=== PATIENT | male | born 1960 | race Caucasian/White ===

== ENCOUNTER 2021-02-20 12:28 | Emergency (ER) | payer OTHER ==
[~2021-02-20 12:28] MED LIST: ALL DAY ALLERGY10 M2 PO; AUGMENTIN 875-1 EACH PO; BACLOFEN10 MG PO; CEFUROXIME500 MG PO; COZAAR100 MG PO; DOXYCYCLINE HY100 MG PO; FLOMAX 0.4 MG0.4 MG PO; GABAPENTIN400 MG PO; NORCO 5-325 TA1 EACH PO; OXYCODONE HCL10 MG PO; PREDNISONE 20 M20 MG GT; PROTONIX 40 MG40 M1 PO
[2021-03-18] MEDS ORDERED: TIZANIDINE HCL2 M1 PO (08:06)
[2021-03-18] MEDS ORDERED: LISINOPRIL20 MG PO (08:06)
[2021-03-18] MEDS ORDERED: VITAMIN D3125 MCG/0. PO (08:07)
== END 2021-02-20 15:07 | disposition home or self-care (01) ==
LOC: ER1 12:28
DX: S39.012A Strain of muscle, fascia and tendon of lower back, initial encounter (principal); S46.912A Strain of unspecified muscle, fascia and tendon at shoulder and upper arm level, left arm, initial encounter; Z79.899 Other long term (current) drug therapy; Z88.8 Allergy status to other drugs, medicaments and biological substances; V49.40XA Driver injured in collision with unspecified motor vehicles in traffic accident, initial encounter; Y92.410 Unspecified street and highway as the place of occurrence of the external cause
CPT/HCPCS: 72131; 72170; 73030; 99284

== ENCOUNTER → 2021-03-02 | Outpatient (CLI) | payer MEDICARE, OTHER ==
[~2021-03-02] MED LIST changes: +LISINOPRIL20 MG PO; +TIZANIDINE HCL2 M1 PO; +VITAMIN D3125 MCG/0. PO
== END ==
LOC: KOH-I 10:07
DX: M25.551 Pain in right hip (principal)
CPT/HCPCS: 73502

== ENCOUNTER → 2021-03-18 | Day surgery (SDC) | payer MEDICARE, OTHER | END | disposition home or self-care (01) | LOC: OR 06:40 | DX: Z12.11 Encounter for screening for malignant neoplasm of colon (principal); K31.9 Disease of stomach and duodenum, unspecified; Z90.49 Acquired absence of other specified parts of digestive tract; J30.9 Allergic rhinitis, unspecified; F41.9 Anxiety disorder, unspecified; M19.90 Unspecified osteoarthritis, unspecified site; K22.70 Barrett's esophagus without dysplasia; N43.3 Hydrocele, unspecified; E78.5 Hyperlipidemia, unspecified; I10 Essential (primary) hypertension; M54.16 Radiculopathy, lumbar region; C44.90 Unspecified malignant neoplasm of skin, unspecified; G62.9 Polyneuropathy, unspecified; M06.9 Rheumatoid arthritis, unspecified; E55.9 Vitamin D deficiency, unspecified; Z79.899 Other long term (current) drug therapy; Z88.8 Allergy status to other drugs, medicaments and biological substances; Z20.822 Contact with and (suspected) exposure to COVID-19; Z90.79 Acquired absence of other genital organ(s) | CPT/HCPCS: J2704; J7030 ==

== ENCOUNTER → 2021-04-19 | Outpatient (CLI) | payer MEDICARE, OTHER | LOC: RAD 11:03 | DX: R06.02 Shortness of breath (principal); R50.9 Fever, unspecified; Z20.822 Contact with and (suspected) exposure to COVID-19 | CPT/HCPCS: 71046; U0003 ==

== ENCOUNTER 2021-09-09 14:12 | Emergency (ER) | payer MEDICARE, OTHER ==
[2021-09-09 15:55] LABS: RED BLOOD COUNT 4.84 M/UL (4.20-5.50); WHITE BLOOD COUNT 6.9 K/UL (4.5-11.0)
[2021-09-09 16:25] LABS: BUN/CREATININE RATIO 7 (0-10)
== END 2021-09-09 16:42 | disposition home or self-care (01) ==
LOC: ER1 14:12
PROVIDERS: Preventive Medicine Occupational Medicine
DX: M54.50 Low back pain, unspecified (principal); G89.29 Other chronic pain; I10 Essential (primary) hypertension
CPT/HCPCS: 72125; 72131; 80053; 85025; 85652; 86140; 96374; 96375; 99284; J1170; J2405

== ENCOUNTER → 2022-02-03 | Outpatient (CLI) | payer MEDICARE, OTHER | LOC: KOH-I 10:11 | DX: M47.26 Other spondylosis with radiculopathy, lumbar region (principal) | CPT/HCPCS: 72110 ==

== ENCOUNTER 2022-02-21 10:52 | Emergency (ER) | payer MEDICARE, OTHER | END 2022-02-21 13:34 | disposition home or self-care (01) | LOC: ER1 10:52 | DX: L55.0 Sunburn of first degree (principal); J45.909 Unspecified asthma, uncomplicated; I10 Essential (primary) hypertension; Z88.8 Allergy status to other drugs, medicaments and biological substances | CPT/HCPCS: 99282 ==

== ENCOUNTER → 2022-03-14 | Outpatient (CLI) | payer MEDICARE, OTHER ==
[2022-03-14 12:35] LABS: HEMOGLOBIN 15.7 gm/dl (14.0-17.5); RED BLOOD COUNT 4.79 M/UL (4.20-5.50); WHITE BLOOD COUNT 6.9 K/UL (4.5-11.0)
[2022-03-14 13:09] LABS: BUN/CREATININE RATIO 9 (0-10)
[2022-03-16 11:14] LABS: CHOLESTEROL, TOTAL 200 mg/dL (100-199); HDL SIZE 9.4 nm (>=9.2); HDL-C 69 mg/dL (>39); HDL-P (TOTAL) 38.3 umol/L (>=30.5); LARGE VLDL-P 2.4 nmol/L (<=2.7); LDL SIZE 21.6 nm (>20.5); LDL SIZE 21.6 nm (>=20.8); LDL-C 117 mg/dL (0-99); LDL-P 1296 nmol/L (<1000); LP-IR SCORE 35 (<=45); SMALL LDL-P 263 nmol/L (<=527); TRIGLYCERIDES 76 mg/dL (0-149); VLDL SIZE 51.8 nm (<=46.6)
== END ==
LOC: LAB 11:36
PROVIDERS: Emergency Medicine
DX: N40.0 Benign prostatic hyperplasia without lower urinary tract symptoms (principal); I10 Essential (primary) hypertension; K21.9 Gastro-esophageal reflux disease without esophagitis; G60.3 Idiopathic progressive neuropathy; M51.36 Other intervertebral disc degeneration, lumbar region
CPT/HCPCS: 36415; 80053; 80061; 83704; 84153; 84443; 84550; 85025